=== PATIENT | female | born 1970 ===

== ENCOUNTER 2018-05-23 21:27 | Emergency (ER) ==
--- NOTE | 2018-05-24 08:02 | EKG REPORT ---
SEVERITY:- ABNORMAL ECG - SINUS RHYTHM ACCELERATED CONDUCTION, BOSSMAN <120MS NONSPECIFIC ST-T CHANGES- INFERIOR LEADS : Confirmed by: Josep Dong MD 24-May-2018 08:02:06
== END 2018-05-23 22:51 | disposition left against medical advice (07) ==
LOC: ER 21:27
DX: Z53.21 Procedure and treatment not carried out due to patient leaving prior to being seen by health care provider (principal)
CPT/HCPCS: 93005; 93010